=== PATIENT | female | born 1985 | race Caucasian/White ===

== ENCOUNTER 2018-08-18 09:07 | Day surgery (SDC) | payer OTHER ==
[2018-08-18 09:44] VITALS: O2SAT 100
[2018-08-18] MEDS ORDERED: Lactated Ringer's 500 ML IV SCH (11:15)
[2018-08-18] MEDS ORDERED: Propofol 10 mg/ml Inj (20 ML) ONE (11:26)
[2018-08-18] MEDS ORDERED: Lactated Ringer's 500 ML IV ONE (11:31)
[2018-08-18] MEDS ORDERED: Lidocaine Hydrochloride 5 ML INJ ONE (11:47)
[2018-08-18 12:36] VITALS: TEMP 99.1
[2018-08-18 13:00] VITALS: RESP 18
[2018-08-18 13:14] VITALS: BP 104/55; PULSE 91
== END 2018-08-18 13:13 | disposition home or self-care (01) ==
LOC: C.ENDO 09:07
PROVIDERS: ATTEND Internal Medicine Gastroenterology
DX: R10.13 Epigastric pain (principal); R19.4 Change in bowel habit; K29.70 Gastritis, unspecified, without bleeding; K64.8 Other hemorrhoids
CPT/HCPCS: 43239; 45380; 84703; 88305; 88313; 88342; J2704; J7120